=== PATIENT | female | born 1985 | race Caucasian/White ===

== ENCOUNTER 2020-06-29 05:46 | Inpatient (IN) | payer OTHER ==
[~2020-06-29] VITALS: Ht 170.2 cm; Wt 70.5 kg
[2020-06-29] MEDS ORDERED: METOCLOPRAMIDE 5 MG/ML, 2ML IV ONE (06:00)
[2020-06-29] MEDS ORDERED: ONDANSETRON 2MG/ML, 2ML IVPush ONE (06:00)
[2020-06-29] MEDS ORDERED: SODIUM CITRATE/CITRIC ACID 30 ML UDC PO ONE (06:00)
[2020-06-29] MEDS ORDERED: LACTATED RINGERS 1,000 ML IVBOLUS ONE (06:00)
[2020-06-29] MEDS ORDERED: SODIUM CITRATE/CITRIC ACID 15 ML UDC ONE (06:09)
[2020-06-29] MEDS ORDERED: NEWBORN KIT ONE (06:09)
[2020-06-29 06:37] LABS: BASOPHILS % (AUTO) 0 % (0-1); EOSINOPHILS % (AUTO) 1 % (1-7); LYMPHOCYTES % (AUTO) 18 % (22-44); MEAN CORPUSCULAR HEMOGLOBIN 34.3 pg (27.0-34.8); MEAN CORPUSCULAR HGB CONC 34.3 g/dL (32.4-35.8); MEAN PLATELET VOLUME 8.5 fL (7.4-10.4); MONOCYTES % (AUTO) 7 % (2-9); NEUTROPHILS % (AUTO) 75 % (42-75); PLATELET COUNT 217 x10^3/uL (130-400); RED BLOOD COUNT 3.65 x10^6/uL (3.82-5.3); RED CELL DISTRIBUTION WIDTH 12.7 % (9.6-15.2)
[2020-06-29 06:44] LABS: MD NO
[2020-06-29] MEDS ORDERED: morphine SULFATE/PF 0.5 MG/ML, 10ML ONE (07:25)
[2020-06-29] MEDS ORDERED: OXYTOCIN 10 UNITS/ML, 1ML ONE (07:27)
[2020-06-29] MEDS ORDERED: ONDANSETRON 2MG/ML, 2ML ONE (07:27)
[2020-06-29] MEDS ORDERED: SODIUM CHLORIDE 0.9% PF 10ML ONE (07:27)
[2020-06-29] MEDS ORDERED: PHENYLEPHRINE 10 MG/ML ONE (07:27)
[2020-06-29] MEDS ORDERED: CEFAZOLIN 1,000 MG ONE (07:27)
[2020-06-29] MEDS ORDERED: DEXAMETHASONE 4 MG/ML, 1ML ONE (07:27)
[2020-06-29] MEDS ORDERED: KETOROLAC 30 MG/1 ML ONE (07:27)
[2020-06-29] MEDS ORDERED: OXYTOCIN 30U/ 0.9% NaCL 500ML 500 ML ONE (08:49)
[2020-06-29] MEDS ORDERED: ONDANSETRON 2MG/ML, 2ML IV PRN (09:00)
[2020-06-29] MEDS ORDERED: METHYLERGONOVINE 0.2 MG/ML IM PRN (09:00)
[2020-06-29] MEDS ORDERED: morphine SULFATE 10 MG/ML, 1ML IM PRN (09:00)
[2020-06-29] MEDS ORDERED: OXYTOCIN 30U/ 0.9% NaCL 500ML 500 ML IV SCH (09:00)
[2020-06-29] MEDS ORDERED: LACTATED RINGERS 1,000 ML IV SCH (09:00)
[2020-06-29] MEDS ORDERED: CALCIUM CARBONATE 500 MG TAB.CHEW PO PRN (09:00)
[2020-06-29] MEDS ORDERED: SIMETHICONE 80 MG CHEW TAB PO PRN (09:00)
[2020-06-29] MEDS ORDERED: OXYcodone/APAP 5/325MG TABLET PO PRN ×3 (09:00→11:30)
[2020-06-29] MEDS: LACTATED RINGERS 1,000 ML IV SCH ×2 (09:00→17:00)
[2020-06-29] MEDS ORDERED: ACETAMINOPHEN 325 MG TABLET PO PRN (09:00)
[2020-06-29] MEDS ORDERED: MORPHINE SULFATE 4 MG/ML, 1ML IVPush PRN (09:00)
[2020-06-29] MEDS ORDERED: OXYcodone IR 5MG TABLET PO PRN (09:00)
[2020-06-29] MEDS: PRENATAL VIT/IRON/FA 1 EACH TABLET PO SCH (09:00)
[2020-06-29] MEDS ORDERED: CARBOPROST TROMETHAMINE 250 MCG/ML, 1ML IM PRN (09:00)
[2020-06-29] MEDS ORDERED: morphine SULFATE 10 MG/ML, 1ML IVPush PRN (11:30)
[2020-06-29 13:15] VITALS: BP 118/76
[2020-06-29] MEDS: KETOROLAC 30 MG/1 ML IVPush PRN ×2 (14:47→20:47)
[2020-06-29 16:37] VITALS: BP 116/60
[2020-06-29 17:13] LABS: MEAN CORPUSCULAR HEMOGLOBIN 34.3 pg (27.0-34.8); MEAN CORPUSCULAR HGB CONC 34.3 g/dL (32.4-35.8); MEAN PLATELET VOLUME 8.8 fL (7.4-10.4); PLATELET COUNT 226 x10^3/uL (130-400); RED BLOOD COUNT 3.71 x10^6/uL (3.82-5.3); RED CELL DISTRIBUTION WIDTH 12.3 % (9.6-15.2)
[2020-06-29 17:48] LABS: MD YES
[2020-06-29 17:51] LABS: BAND#(MANUAL) 1.43 x10^3/uL; BANDS%(MANUAL) 8 % (0-7); LYMPH#(MANUAL) 1.43 x10^3/uL (1-3.4); LYMPHS% (MANUAL) 8 % (22-44); MONOS#(MANUAL) 0.54 x10^3/uL (0.3-2.7); MONOS% (MANUAL) 3 % (2-9)
[2020-06-29 17:52] LABS: METAMYELOCYTES# (MANUAL) 0.18 x10^3/uL (0-0); METAMYELOCYTES% (MANUAL) 1 % (0-1); SEGS% (MANUAL) 80 % (42-75)
[2020-06-29 17:53] LABS: <PLATELET ESTIMATE> ADEQUATE; <PLT MORPHOLOGY> NORMAL PLT MORPH; <RBC MORPHOLOGY> NORMAL
[2020-06-29] MEDS: DOCUSATE 100 MG CAPSULE PO PRN (20:47)
[2020-06-29 21:05] VITALS: BP 108/62
[2020-06-30 00:35] VITALS: BP 106/64
[2020-06-30] MEDS: KETOROLAC 30 MG/1 ML IVPush PRN ×4 (02:33→20:59)
[2020-06-30 05:00] VITALS: BP 100/62
[2020-06-30 07:42] VITALS: BP 103/67
[2020-06-30] MEDS: PRENATAL VIT/IRON/FA 1 EACH TABLET PO SCH (08:55)
[2020-06-30] MEDS: DOCUSATE 100 MG CAPSULE PO PRN (08:55)
[2020-06-30 20:00] VITALS: BP 124/91
[2020-07-01] MEDS: IBUPROFEN 600 MG TABLET PO PRN ×2 (03:34→09:17)
[2020-07-01 08:00] VITALS: BP 121/78
[2020-07-01] MEDS: DOCUSATE 100 MG CAPSULE PO PRN (09:17)
[2020-07-01] MEDS: PRENATAL VIT/IRON/FA 1 EACH TABLET PO SCH (09:17)
== END 2020-07-01 14:20 | disposition home or self-care (01) | DRG 788 ==
LOC: LDIP 05:46 → 2NW 10:30
PROVIDERS: ADMIT Obstetrics & Gynecology; ATTEND Obstetrics & Gynecology
PROC: 10D00Z1 Extraction of Products of Conception, Low, Open Approach (ICD-10-PCS; principal; 2020-06-29)
DX: O34.211 Maternal care for low transverse scar from previous cesarean delivery (principal); Z37.0 Single live birth; Z3A.39 39 weeks gestation of pregnancy
CPT/HCPCS: 36415; 85025; 86592; 86850; 86900; 87635; G0378; J0690; J1100; J1885; J2274; J2405; J2370; J2590; J2765; J7120